=== PATIENT | female | born 1970 | race Caucasian/White ===

== ENCOUNTER 2025-04-17 17:51 | Emergency (ER) | payer OTHER, SELFPAY ==
[2025-04-17 18:02] VITALS: BP 156/75
--- NOTE | 2025-04-17 19:09 | ED.GENMED ---
History of Present Illness
General
Chief Complaint: Skin Surface Trauma
Source: patient
Exam Limitations: none
Time Seen by Provider: 04/17/25 19:01
History of Present Illness
History of Present Illness:
54yo [id number] female presenting for evaluation of a left palm laceration that was sustained this evening. Patient states she fell and was carrying a glass with her right hand. The glass broke during the fall and a shard of glass
lacerated her left palm. She was able to remove the piece of glass in entirety. She went to urgent care prior to arrival. Urgent care reportedly did not feel comfortable suturing due to the amount of discomfort she was in. No paresthesias. She
is scheduled to receive a tetanus vaccine in 2 days at a PCP appointment and is declining this currently.
Phy Exam
General Physical Exam
General Presentation: well appearing and no apparent distress
General Skin: warm and dry
General Habitus: normal
General Mental: alert
Neurological Exam
Neurological Exam: alert
[place] Coma Scale
Eye Opening: Spontaneous
Verbal Response: Oriented
Motor Response: Obeys Commands
GCS Total Score: 15
Skin Exam
Skin Exam: normal color, warm/dry and other (Approx 2cm laceration noted to L palm near thenar eminence with exposed subcutaneous tissue. No active bleeding. No FB. No visualized tendon and ROM of fingers intact. 2+ radial pulse.)
Psychiatric Exam
Psychiatric Exam: normal mood/affect
Course
Orders/Labs/Results
Orders:
Orders
04/17/25 19:09
Lidocaine/Epinephrine/Tetracai [Let Topical Anesthetic Gel] 3 ml TOPICAL NOW STA
Vital Signs
Initial and Last Documented VS:
Initial Vital Signs
Temp Pulse Resp BP Pulse Ox
98.4 F 70 18 156/75 100
04/17/25 18:02 04/17/25 18:02 04/17/25 18:02 04/17/25 18:02 04/17/25 18:02
Last Documented Vital Signs
Temp Pulse Resp BP Pulse Ox
98.4 F 70 18 156/75 100
04/17/25 18:02 04/17/25 18:02 04/17/25 18:02 04/17/25 18:02 04/17/25 19:10
Procedures
Laceration Closure
Left Palmar Hand:
Status of Wound: clean
Size of Wound in cm: 2
Description of Wound Edges: ragged
Preparation: cleaned with saline
Anesthesia: 1% Lidocaine with epi and Topical-LET
Revision/Debridement: minor revision
Wound exploration: explored to base- no FB
Type of Closure: single layer closure
Skin Closure Material: 4-0 nylon
Number of sutures: 4
MDM/Problems Addressed
Differential Diagnosis Includes:
54yoF here with a L palm laceration. Sent by urgent care for sutures. 2cm laceration noted on exam with exposed subcutaneous tissue. No evidence of tendon injury or foreign body. Laceration cleaned and repaired as above. Home wound care discussed.
Patient instructed to have sutures removed in 10-14 days and return to the ED with any signs of infection. She is scheduled to have a Tdap vaccine in 2 days at a PCP appt.
*Pulse Oximetry
SaO2: 100
Oxygen Mode of Delivery: Room air
Patient hypoxic: no
*Critical Care Note
Total Time (30-74mins, 75-104mins- exclusive of procedures): Not Applicable
ED Attending Note
-
Portions of this chart may have been created with voice recognition software.� Occasional wrong word or��sound alike� substitutions may have occurred due to the inherent limitations of voice recognition software.
Discharge Plan
Departure
Patient Disposition: Home (Routine Discharge)
Date of Disposition: 04/17/25
Time of Disposition: 20:15
Patient with high blood pressure during this ER visit?: Yes
Discharge Problem:
Laceration of left palm
Instructions: Laceration Repair With [facility] (DC)
Referrals:
Kalee Velásquez CRNP [Family Provider]
Activity Restrictions/Additional Instructions:
Do not get wet for 24 hours. Change dressings daily.
Sutures need to be removed in 10-14 days. Return to the ER sooner with any signs of infection.
Interventions
Interventions:
*General Assessment Last Done: 04/17/25 19:32
*Neglect/Abuse Screening Last Done: 04/17/25 19:48
*ED COVID-19 Vaccine History Last Done: 04/17/25 19:32
*ED Influenza Vaccine History Last Done: 04/17/25 19:32
[facility] Fall Risk Assessment Tool Last Done: 04/17/25 19:32
*Risk Screen - Suicide (C-SSRS) Last Done: 04/17/25 20:39
*Nursing Disposition Last Done: 04/17/25 20:39
ED-Skin Assessment Last Done: 04/17/25 19:32
Discharge Date and Time
Discharge Date/Time: 04/17/25 20:39
Print Language: BURKIN[place]
[2025-04-17] MEDS: LET TOPICAL ANESTHETIC GEL 3 ML TOPICAL (19:15)
== END 2025-04-17 20:39 | disposition home or self-care (01) ==
LOC: EMR 17:51
PROVIDERS: EMERGENCY PHYSICIAN Emergency Medicine; FAMILY PHYSICIAN Nurse Practitioner Primary Care
DX: S61.412A Laceration without foreign body of left hand, initial encounter (principal); W01.110A Fall on same level from slipping, tripping and stumbling with subsequent striking against sharp glass, initial encounter
CPT/HCPCS: 99282; 12001